=== PATIENT | female | born 1945 | race Caucasian/White ===

== ENCOUNTER 2020-01-01 09:47 | Emergency (ER) | payer MEDICARE ==
[~2020-01-01] VITALS: Ht 160 cm; Wt 86.4 kg
[2020-01-01 09:57] VITALS: BP 180/95; Ht 160 cm; Wt 86.4 kg
[2020-01-01] MEDS ORDERED: DYRENIUM50 MG PO (09:59)
[2020-01-01] MEDS ORDERED: NORVASC5 MG PO (09:59)
== END 2020-01-01 11:04 | disposition home or self-care (01) ==
LOC: D.ER 09:47
DX: M25.561 Pain in right knee (principal); I10 Essential (primary) hypertension

== ENCOUNTER → 2020-01-28 18:52 | Outpatient (CLI) | payer MEDICARE ==
[2020-01-01 09:57] VITALS: BMI 33.7
[~2020-01-28 18:52] MED LIST: DYRENIUM50 MG PO; NORVASC5 MG PO
== END | disposition home or self-care (01) ==
LOC: D.LAB 18:52
PROVIDERS: ATTEND Orthopaedic Surgery
DX: M17.11 Unilateral primary osteoarthritis, right knee (principal)

== ENCOUNTER → 2020-07-02 16:10 | Outpatient (CLI) | payer MEDICARE ==
[2020-01-01 09:57] VITALS: BMI 33.7
== END | disposition home or self-care (01) ==
LOC: D.LABREF 16:10
PROVIDERS: ATTEND Orthopaedic Surgery
DX: M17.11 Unilateral primary osteoarthritis, right knee (principal)

== ENCOUNTER 2020-08-24 06:58 | Inpatient (IN) | payer MEDICARE ==
--- NOTE | 2020-08-17 14:09 | NUR ---
PATIENT REFUSES BLOOD TRRANSFUSION COOPER AT DR. YOUNG'S OFFICE NOTIFIED
[2020-08-18 13:10] LABS: BASOPHILS 0.4 % (0-2); EOSINOPHILS 1.3 % (0-7); HEMATOCRIT 41.6 % (36.0-48.0); HEMOGLOBIN 13.3 g/dL (12-16); IMMATURE GRANULOCYTES 0.2 % (0-5); LYMPHOCYTES 47.8 % (15-50); MCH 26.7 pg (26.0-34.0); MCV 83.4 fL (80.0-100.0); MEAN PLATELET VOLUME 10.9 fL (7.4-10.4); MONOCYTES 9.9 % (2-11); NEUTROPHIL ABS# 2.11 10x3/uL (1.56-6.13); NEUTROPHILS 40.4 % (40-80); PLATELET COUNT 232 10x3/uL (130-400); RBC 4.99 10x6/uL (4.00-5.40); WBC 5.2 10x3/uL (4.8-10.8)
[2020-08-18 13:18] LABS: BILIRUBIN NEGATIVE (NEGATIVE); KETONE NEGATIVE (NEGATIVE); NITRITE NEGATIVE (NEGATIVE); UROBILINOGEN NORMAL mg/dL (< 2)
[2020-08-18 13:20] LABS: ANION GAP 11.1 mmol/L (8-16); CALCIUM 9.3 mg/dL (8.5-10.1); CARBON DIOXIDE 30.5 mmol/L (21.0-32.0); POTASSIUM - SERUM 3.6 mmol/L (3.5-5.1)
[2020-08-18 13:21] LABS: APTT 32.6 SECONDS (22.8-39.4); INR 1.11 (0.85-1.17); PROTIME 13.3 SECONDS (11.6-15.0)
[2020-08-24] VITALS (10 sets, daily range): BP systolic 115–157; BP diastolic 61–77; Ht 154.9 cm; Wt 89.1 kg
[~2020-08-24] VITALS: Ht 154.9 cm; Wt 89.1 kg
[~2020-08-24 06:58] MED LIST changes: +DIOVAN160 MG
--- NOTE | 2020-08-24 13:09 | NUR ---
RECIEVED PER BED FROM PACU. AWAKE AND ALERT WITH NO COMPLAINTS OF PAIN. RIGHT KNEE WRAPPED IN CHANDU WRAP CLEAN DRY AND INTACT. SCD AND MAIKEL HOSE ON BILAT. ICE PACK TO RIGHT KNEE. FALL PRECAUTIONS IN PLACE WITH BED ALARM ACTIVATED. IV TO LEFT FOREARM WITHOUT SWELLING. FAMILY AT BEDSIDE. CALL LIGHT IN REACH
--- NOTE | 2020-08-24 17:29 | NUR ---
pt vomited approx 100cc green liq after zofran given and eating some dinner. encouraged pt not to continue to eat and let stomash settle. placed on cpm machine with ice bag to knee. call light in place and fall alarm on and active
--- NOTE | 2020-08-24 18:19 | MORECARE ---
CASE MANAGEMENT DISCHARGE SUMMARY PATIENT: SHIV MCFADDEN UNIT: [id number] ADM DATE: 08/24/20 AGE: 75 : 46 SEX: F ROOM/BED: D.1208 AUTHOR: DAYTON,DOC PHYSICIAN: REFERRING PHYSICIAN: UZMA YOUNG DO DATE OF SERVICE: 08/24/20 Case Management Discharge Planning Summary COMMENTS ENTERED DATE: 08/24/20 18:13 CT COMMENT TYPE: Discharge Planning REVIEWER: Kalyan Telles CM met with patient to complete DC plan and to evaluate needs. Patient lives independently with her daughter, Noreen Diaz, . Patient stated that her home is safe and has electricity and running water. Patient stated that she has no problems paying for medications and she fills her medications at [facility]. Patient stated that her primary care physician is Dr. Wright. At discharge, the patient plans to return home and feels this is a safe discharge. CM discussed availability of home health, rehab services, and medical equipment. Patient declined HHS, SNF, IPR, and DME. Patient would like Outpatient Physical Therapy with [facility]. KI signed and placed in chart. Patient stated that she has a Shower Chair and Walker. Patient stated that the CPM arrived at her house before her surgery. Patient voiced no other needs at this time and is satisfied with DC plan. Transportation provider at discharge will be with her daughter, Noreen. SUZETTE delivered, explained, signed by the patient, and placed in chart. Signed form also left with the patient. CM will continue to follow and will assist as needed with dc plans/needs DCP REVIEW SUMMARY ANTICIPATED D/C DATE: EXPECTED LOS : CASE STATUS: DCP Initiated INITIAL REVIEW: 08/24/2020 INITIAL REVIEWER: Kalyan Telles FINAL DISCHARGE DISPOSITION: : FINAL REVIEWER: FINAL REVIEW DATE: DCP Focus Questions & Answers DCP Evaluation QUESTION: ANSWER Patient and/or caregiver agree upon recommended discharge plan? : Yes Family / Caregiver's ability to cope with chronic illness: : a. Adequate (ability to meet patient's medical needs, ensures patient attends medical appts.) Patient's current cognitive status: : *Oriented to person, place, situation, time and present Patient's ability to cope with chronic illness : d. No chronic illness Patient gives permission to discuss discharge plans with: (name, relationship and number) : daughter Noreen Diaz, Does the patient have the ability to pay for or attain post discharge needs / services? : Yes Functional screen assessment: : Basic needs can adequately be met by self Family / Caregiver's ability to cope with chronic illness: : a. Adequate (ability to meet patient's medical needs, ensures patient attends medical appts.) Physical Status: : Independent with ADL's Equipment needed for post hospitalization: : None Is there a likelihood that the patient will require additional services to return to the preadmission environment? : No Living Arrangements: : Home with Extended Family Patient with capacity for self-care or can be cared for in same environment as prior to hospitalization? : Yes Baseline cognitive status: : *Oriented to person, place, situation, time and present Physical environment modification needed / anticipated for discharge: : No Medication Management: : Patient states can read and understand medication labels Medication Management: : Patient states can afford medications Pharmacy name(s): : [facility] Does Patient have transportation to get home and to follow-up medical appointments when discharged from the hospital? : Yes Would patient like to participate in any Care Coordination programs (if applicable): : Not applicable Does the patient have electricity at home? : Yes Does the patient have running water in their house? : Yes Equipment in use: : Walker - Rolling Equipment in use: : Shower Chair Mental health screen: : No mental health history DCP Re-evaluation QUESTION: ANSWER Would patient like to participate in any Care Coordination programs (if applicable): : Not applicable PATIENT: SHIV MCFADDEN ENCOUNTER: [id number] MEDICAL RECORD#: [id number] ADMISSION DATE: 08/24/2020 DISCHARGE DATE: ATTENDING MD: UZMA BLAKE : AGE: 75 MARITAL STATUS: W DC PLAN ID: [id number] FACILITY: [facility] PRINTED ON: 08/24/20 18:19 CT All edits/amendments must be made on the electronic document DICTATION DATE: 08/24/201818 ACID TESTER: AMANDA 08/24/201818 RPT#: [id number] DC DATE: STATUS: ADM IN [facility] [address] [place] [address] END OF REPORT
--- NOTE | 2020-08-24 18:29 | MORECARE ---
CASE MANAGEMENT DISCHARGE SUMMARY PATIENT: SHIV MCFADDEN UNIT: [id number] ADM DATE: 08/24/20 AGE: 75 : 46 SEX: F ROOM/BED: D.1208 AUTHOR: DAYTON,DOC PHYSICIAN: REFERRING PHYSICIAN: UZMA YOUNG DO DATE OF SERVICE: 08/24/20 Case Management Discharge Planning Summary COMMENTS ENTERED DATE: 08/24/20 18:13 CT COMMENT TYPE: Discharge Planning REVIEWER: Kalyan Telles CM met with patient to complete DC plan and to evaluate needs. Patient lives independently with her daughter, Noreen Diaz, . Patient stated that her home is safe and has electricity and running water. Patient stated that she has no problems paying for medications and she fills her medications at [facility]. Patient stated that her primary care physician is Dr. Wright. At discharge, the patient plans to return home and feels this is a safe discharge. CM discussed availability of home health, rehab services, and medical equipment. Patient declined HHS, SNF, IPR, and DME. Patient would like Outpatient Physical Therapy with [facility]. KI signed and placed in chart. Patient stated that she has a Shower Chair and Walker. Patient stated that the CPM arrived at her house before her surgery. Patient voiced no other needs at this time and is satisfied with DC plan. Transportation provider at discharge will be with her daughter, Rachel. BRADFORD delivered, explained, signed by the patient, and placed in chart. Signed form also left with the patient. CM will continue to follow and will assist as needed with dc plans/needs Appended by Kalyan Telles on 08/24/2020 18:22 CDT: 24 Aug 2020 Clinical Documents faxed to [facility] OP PT. CM will continue to follow and will assist as needed with dc plans/needs DCP REVIEW SUMMARY ANTICIPATED D/C DATE: EXPECTED LOS : CASE STATUS: DCP Initiated INITIAL REVIEW: 08/24/2020 INITIAL REVIEWER: Kalyan Telles FINAL DISCHARGE DISPOSITION: : FINAL REVIEWER: FINAL REVIEW DATE: DCP Focus Questions & Answers DCP Evaluation QUESTION: ANSWER Patient and/or caregiver agree upon recommended discharge plan? : Yes Family / Caregiver's ability to cope with chronic illness: : a. Adequate (ability to meet patient's medical needs, ensures patient attends medical appts.) Patient's current cognitive status: : *Oriented to person, place, situation, time and present Patient's ability to cope with chronic illness : d. No chronic illness Patient gives permission to discuss discharge plans with: (name, relationship and number) : daughterNoreen, Does the patient have the ability to pay for or attain post discharge needs / services? : Yes Functional screen assessment: : Basic needs can adequately be met by self Family / Caregiver's ability to cope with chronic illness: : a. Adequate (ability to meet patient's medical needs, ensures patient attends medical appts.) Physical Status: : Independent with ADL's Equipment needed for post hospitalization: : None Is there a likelihood that the patient will require additional services to return to the preadmission environment? : No Living Arrangements: : Home with Extended Family Patient with capacity for self-care or can be cared for in same environment as prior to hospitalization? : Yes Baseline cognitive status: : *Oriented to person, place, situation, time and present Physical environment modification needed / anticipated for discharge: : No Medication Management: : Patient states can read and understand medication labels Medication Management: : Patient states can afford medications Pharmacy name(s): : [facility] Does Patient have transportation to get home and to follow-up medical appointments when discharged from the hospital? : Yes Would patient like to participate in any Care Coordination programs (if applicable): : Not applicable Does the patient have electricity at home? : Yes Does the patient have running water in their house? : Yes Equipment in use: : Walker - Rolling Equipment in use: : Shower Chair Mental health screen: : No mental health history DCP Re-evaluation QUESTION: ANSWER Would patient like to participate in any Care Coordination programs (if applicable): : Not applicable PATIENT: SHIV MCFADDEN ENCOUNTER: [id number] MEDICAL RECORD#: [id number] ADMISSION DATE: 08/24/2020 DISCHARGE DATE: ATTENDING MD: UZMA BLAKE : AGE: 75 MARITAL STATUS: W DC PLAN ID: [id number] FACILITY: [facility] PRINTED ON: 08/24/20 18:29 CT All edits/amendments must be made on the electronic document DICTATION DATE: 08/24/201828 CUTCH CLEANER: AMANDA 08/24/201828 RPT#: [id number] DC DATE: STATUS: ADM IN [facility] [address] [place] [place] [address] END OF REPORT
--- NOTE | 2020-08-24 20:00 | NUR ---
ALERT RESTING IN BED, CPM IN USE DENIES PAIN OR NEEDS AT THIS TIME, SEE SHIFT ASSESSMENT CALL LIGHT IN REACH
--- NOTE | 2020-08-24 21:06 | OP ---
PATIENT NAME: SHIV FLORES MEDICAL RECORD: [id number] :47 LOCATION:D. D.1208 ADMISSION DATE:08/24/20 SURGEON: EH YOUNG DO DATE OF OPERATION: 08/24/2020 PROCEDURE PERFORMED: Right total knee arthroplasty. PREOPERATIVE DIAGNOSIS: Right knee osteoarthritis. POSTOPERATIVE DIAGNOSIS: Right knee osteoarthritis. INDICATIONS: Ms. Flores is a 75-year-old female who has had right knee pain for quite some time. She was tired of dealing with the pain and wanted something done surgically. She has tried all manner of nonoperative treatment and it has affected her activities of daily living. I informed her of the risks of this including infection, bleeding, damage to nerves or vessels, need for further surgery, continued pain, failure of the implant, fracture, need for revision, blood clots and even and she signed a consent. SURGEON: Eh Young DO DESCRIPTION OF PROCEDURE: The patient was taken to the operative suite, laid in supine position, given a block and a spinal and then light sedation. She was given 2 grams of Ancef, 80 mg of gentamicin and a gram of TXA. She was then prepped and draped in sterile fashion. Timeout was performed. Everyone was in agreeance with the correct side, site, patient and procedure. I then began by marking out the incision from the anterior knee covered in Ioban. I then made careful dissection down with a 10-blade scalpel to the capsule, did a medial parapatellar approach to go into the capsule, coagulating any bleeding with Aquamantys. I then everted the patella, removed part of the fat pad and removed the osteophytes off the patella. I then milled the patella down and measured it with calipers to be 13 mm, then drilled for a 29 patella. I then exposed the femur, removed the ACL, went to the femoral canal. Once the femoral canal was entered, I brought in the intramedullary guide and cut the distal femur at 5 degrees of valgus. I then exposed the tibia, cut the proximal tibia off the medial side and 10 mm extramedullary tibial guide. I then removed that bone and brought in the extension, removed the menisci and a 10 extension block, fit very well. I then flexed the knee up and the femur was measured to be a 7. I then put the 4-in-1 cutting block on it and used an hanny wing to assure there was no notching. I then cut the femur through the 4-in-1 cutting block, removed the bone, exposed the tibia, sized it to be D, pinned that into place, put the femoral trial on and a 10 poly in between, it fit very well, had good varus and valgus stability in flexion, mid flexion and extension. I then drilled the lug holes on the femur, removed the femoral trial as well as the poly and then reamed and punched the tibia. I put extra holes in the tibia for cement mantle. I then irrigated that out and put cement in the tibia and on the implant, impacted into place, removed excess cement and impacted the femur on and put the poly trial in between, brought the knee in extension, irrigated and cleaned out the patellar holes for cement and then on the implant, squeezed it into place, removed excess cement. I then put in 10% povidine iodine and 500 mL normal saline solution and let sit for a few minutes and then irrigated out with over a liter of normal saline. While we were waiting for that, I injected the joint cocktail around the periosteum of the femur and the tibia and then in the quads. After I irrigated out the Betadine and the cement had dried, I sized the tibia, tried a 11, 11 fit very well. I then removed the trial, irrigated and then put OPERATIVE REPORT [id number] SHIV FLORES in the 11 medial congruent bearing E poly tibial poly and then ranged the knee, it ranged very well and had good varus and valgus stability in flexion, extension and mid flexion. We then put in the Jairon and vancomycin and tobramycin powder and then closed the capsule with #1 Vicryl in [id number] fashion. Abiel Chaney, certified prosthetist closed over that with Stratafix. I then closed the skin with 2-0 Vicryl in inverted interrupted fashion, placed ZipLine, adaptic, 4 x 4s, ABD, cast padding and 6-inch Moe wrap on the knee and then a MAIKEL hose stocking up the knee. She was awakened and taken to recovery in stable condition. Blood loss was approximately 200 mL. COMPLICATIONS: None. TRANSINT:[id number] Voice Confirmation ID: [id number] DOCUMENT ID: [id number] EH YOUNG DO at 2106 CC: [id number] DICTATION DATE: 08/24/20 1158 EQUIPMENT OPERATOR: 08/24/20 1636 ADM IN [facility] [address] [id number]
[2020-08-25 00:02] VITALS: BP 149/71
[2020-08-25 04:00] VITALS: BP 134/70
[2020-08-25 07:00] VITALS: BP 144/70
[2020-08-25 07:21] LABS: BASOPHILS 0 % (0-2); EOSINOPHILS 0.4 % (0-7); HEMATOCRIT 34.6 % (36.0-48.0); IMMATURE GRANULOCYTES 0.1 % (0-5); LYMPHOCYTE ABS# 1.47 10x3/uL (1.18-3.74); LYMPHOCYTES 21.2 % (15-50); MCH 26.4 pg (26.0-34.0); MCHC 31.8 g/dL (31.0-37.0); MEAN PLATELET VOLUME 10.9 fL (7.4-10.4); NEUTROPHIL ABS# 4.79 10x3/uL (1.56-6.13); NEUTROPHILS 69.3 % (40-80); PLATELET COUNT 205 10x3/uL (130-400); RBC 4.17 10x6/uL (4.00-5.40); RDW 13.7 % (11.5-14.5); WBC 6.9 10x3/uL (4.8-10.8)
[2020-08-25 07:41] LABS: ALBUMIN 2.9 g/dL (3.4-5.0); ANION GAP 10.5 mmol/L (8-16); BILIRUBIN - TOTAL 0.47 mg/dL (0.2-1.3); CALCIUM 7.9 mg/dL (8.5-10.1); CARBON DIOXIDE 28.2 mmol/L (21.0-32.0); POTASSIUM - SERUM 3.7 mmol/L (3.5-5.1); PROTEIN - SERUM 6.6 g/dL (6.4-8.2)
--- NOTE | 2020-08-25 07:49 | NUR ---
AWAKE AND ALERT. ORIENTED X3. NO C/O AT THIS TIME. LUNGS ARE CLEAR BILATERALLY, NO COUGH NOTED. REPORTED USED IS INSTRUCTED. SKIN IS INTACT WITHOUT REDNESS EXCEPT INCISION TO RIGHT KNEE WHICH HAS A DRY INTACT DRESSING IN PLACE. IV TO LEFT FOREARM IS PATENT WITHOUT REDNESS AT INSERTION SITE. UP TO BSC WITH MAX ASSIST OF 2. WILL MONITOR. CPM ON RIGHT KNEE.
--- NOTE | 2020-08-25 09:42 | NUR ---
CONTINUES UP IN CHAIR AT BEDSIDE. REQUESTED AND GIVEN ONE PERCOCET PO FOR C/O RIGHT KNEE PAIN LEVEL 8. WILL MONITOR.
--- NOTE | 2020-08-25 10:51 | NUR ---
SITTING UP IN CHAIR AT BEDSIDE. DAUGHTER AT BEDSIDE.
[2020-08-25 11:00] VITALS: BP 141/65
--- NOTE | 2020-08-25 16:10 | MORECARE ---
CASE MANAGEMENT DISCHARGE SUMMARY PATIENT: SHIV MCFADDEN UNIT: [id number] ADM DATE: 08/24/20 AGE: 75 : 47 SEX: F ROOM/BED: D.1208 AUTHOR: DAYTON,DOC PHYSICIAN: REFERRING PHYSICIAN: UZMA YOUNG DO DATE OF SERVICE: 08/25/20 Case Management Discharge Planning Summary COMMENTS ENTERED DATE: 08/24/20 18:13 CT COMMENT TYPE: Discharge Planning REVIEWER: Kalyan Telles CM met with patient to complete DC plan and to evaluate needs. Patient lives independently with her daughter, Noreen Diaz, . Patient stated that her home is safe and has electricity and running water. Patient stated that she has no problems paying for medications and she fills her medications at [facility]. Patient stated that her primary care physician is Dr. Wright. At discharge, the patient plans to return home and feels this is a safe discharge. CM discussed availability of home health, rehab services, and medical equipment. Patient declined HHS, SNF, IPR, and DME. Patient would like Outpatient Physical Therapy with [facility]. KI signed and placed in chart. Patient stated that she has a Shower Chair and Walker. Patient stated that the CPM arrived at her house before her surgery. Patient voiced no other needs at this time and is satisfied with DC plan. Transportation provider at discharge will be with her daughter, Rachel. BRADFORD delivered, explained, signed by the patient, and placed in chart. Signed form also left with the patient. CM will continue to follow and will assist as needed with dc plans/needs Appended by Kalyan Telles on 08/24/2020 18:22 CDT: 24 Aug 2020 Clinical Documents faxed to [facility] OP PT. CM will continue to follow and will assist as needed with dc plans/needs DCP REVIEW SUMMARY ANTICIPATED D/C DATE: EXPECTED LOS : CASE STATUS: DCP Initiated INITIAL REVIEW: 08/24/2020 INITIAL REVIEWER: Kalyan Telles FINAL DISCHARGE DISPOSITION: : FINAL REVIEWER: FINAL REVIEW DATE: DCP Focus Questions & Answers DCP Evaluation QUESTION: ANSWER Patient gives permission to discuss discharge plans with: (name, relationship and number) : daughterNoreen, Patient's ability to cope with chronic illness : d. No chronic illness Patient's current cognitive status: : *Oriented to person, place, situation, time and present Family / Caregiver's ability to cope with chronic illness: : a. Adequate (ability to meet patient's medical needs, ensures patient attends medical appts.) Patient and/or caregiver agree upon recommended discharge plan? : Yes Physical Status: : Independent with ADL's Family / Caregiver's ability to cope with chronic illness: : a. Adequate (ability to meet patient's medical needs, ensures patient attends medical appts.) Functional screen assessment: : Basic needs can adequately be met by self Does the patient have the ability to pay for or attain post discharge needs / services? : Yes Living Arrangements: : Home with Extended Family Is there a likelihood that the patient will require additional services to return to the preadmission environment? : No Equipment needed for post hospitalization: : None Baseline cognitive status: : *Oriented to person, place, situation, time and present Patient with capacity for self-care or can be cared for in same environment as prior to hospitalization? : Yes Physical environment modification needed / anticipated for discharge: : No Medication Management: : Patient states can afford medications Medication Management: : Patient states can read and understand medication labels Pharmacy name(s): : [facility] Does Patient have transportation to get home and to follow-up medical appointments when discharged from the hospital? : Yes Would patient like to participate in any Care Coordination programs (if applicable): : Not applicable Does the patient have electricity at home? : Yes Does the patient have running water in their house? : Yes Equipment in use: : Shower Chair Equipment in use: : Walker - Rolling Mental health screen: : No mental health history DCP Re-evaluation QUESTION: ANSWER Would patient like to participate in any Care Coordination programs (if applicable): : Not applicable PATIENT: SHIV MCFADDEN ENCOUNTER: [id number] MEDICAL RECORD#: [id number] ADMISSION DATE: 08/24/2020 DISCHARGE DATE: ATTENDING MD: UZMA BLAKE : AGE: 75 MARITAL STATUS: W DC PLAN ID: [id number] FACILITY: [facility] PRINTED ON: 08/25/20 16:09 CT All edits/amendments must be made on the electronic document DICTATION DATE: 08/25/201608 SYSTEMS ANALYSIS MANAGER: AMANDA 08/25/201608 RPT#: [id number] DC DATE: STATUS: ADM IN [facility] [address] [place] [address] END OF REPORT
--- NOTE | 2020-08-25 17:25 | MORECARE ---
CASE MANAGEMENT DISCHARGE SUMMARY PATIENT: SHIV MCFADDEN UNIT: [id number] ADM DATE: 08/24/20 AGE: 75 : 47 SEX: F ROOM/BED: D.1208 AUTHOR: DAYTON,DOC PHYSICIAN: REFERRING PHYSICIAN: UZMA YOUNG DO DATE OF SERVICE: 08/25/20 Case Management Discharge Planning Summary COMMENTS ENTERED DATE: 08/25/20 17:13 CT COMMENT TYPE: Discharge Planning REVIEWER: Roma Strange CM called [facility] Outpatient therapy and scheduled patient's therapy appointment for soonest available-Sunday 10:45. CM met with patient and instructed her on therapy appointment. Patient verbalized understanding and satisfaction with discharge plans. CM put patient's copy of therapy appointment on chart for nurse to give her at discharge with DC instructions. Denies any other discharge planning needs at this time. ENTERED DATE: 08/24/20 18:13 CT COMMENT TYPE: Discharge Planning REVIEWER: Kalyan Telles CM met with patient to complete DC plan and to evaluate needs. Patient lives independently with her daughter, Noreen Diaz, . Patient stated that her home is safe and has electricity and running water. Patient stated that she has no problems paying for medications and she fills her medications at [facility]. Patient stated that her primary care physician is Dr. Wright. At discharge, the patient plans to return home and feels this is a safe discharge. CM discussed availability of home health, rehab services, and medical equipment. Patient declined HHS, SNF, IPR, and DME. Patient would like Outpatient Physical Therapy with [facility]. KI signed and placed in chart. Patient stated that she has a Shower Chair and Walker. Patient stated that the CPM arrived at her house before her surgery. Patient voiced no other needs at this time and is satisfied with DC plan. Transportation provider at discharge will be with her daughter, Noreen. BRADFORD delivered, explained, signed by the patient, and placed in chart. Signed form also left with the patient. CM will continue to follow and will assist as needed with dc plans/needs Appended by Kalyan Telles on 08/24/2020 18:22 CDT: 24 Aug 2020 Clinical Documents faxed to [facility] OP PT. CM will continue to follow and will assist as needed with dc plans/needs DCP REVIEW SUMMARY ANTICIPATED D/C DATE: EXPECTED LOS : CASE STATUS: DCP Initiated INITIAL REVIEW: 08/24/2020 INITIAL REVIEWER: Kalyan Telles FINAL DISCHARGE DISPOSITION: : FINAL REVIEWER: FINAL REVIEW DATE: DCP Focus Questions & Answers DCP Evaluation QUESTION: ANSWER Patient gives permission to discuss discharge plans with: (name, relationship and number) : daughterNoreen, Patient's ability to cope with chronic illness : d. No chronic illness Patient's current cognitive status: : *Oriented to person, place, situation, time and present Family / Caregiver's ability to cope with chronic illness: : a. Adequate (ability to meet patient's medical needs, ensures patient attends medical appts.) Patient and/or caregiver agree upon recommended discharge plan? : Yes Physical Status: : Independent with ADL's Family / Caregiver's ability to cope with chronic illness: : a. Adequate (ability to meet patient's medical needs, ensures patient attends medical appts.) Functional screen assessment: : Basic needs can adequately be met by self Does the patient have the ability to pay for or attain post discharge needs / services? : Yes Living Arrangements: : Home with Extended Family Is there a likelihood that the patient will require additional services to return to the preadmission environment? : No Equipment needed for post hospitalization: : None Baseline cognitive status: : *Oriented to person, place, situation, time and present Patient with capacity for self-care or can be cared for in same environment as prior to hospitalization? : Yes Physical environment modification needed / anticipated for discharge: : No Medication Management: : Patient states can afford medications Medication Management: : Patient states can read and understand medication labels Pharmacy name(s): : [facility] Does Patient have transportation to get home and to follow-up medical appointments when discharged from the hospital? : Yes Would patient like to participate in any Care Coordination programs (if applicable): : Not applicable Does the patient have electricity at home? : Yes Does the patient have running water in their house? : Yes Equipment in use: : Shower Chair Equipment in use: : Walker - Rolling Mental health screen: : No mental health history DCP Re-evaluation QUESTION: ANSWER Would patient like to participate in any Care Coordination programs (if applicable): : Not applicable PATIENT: SHIV MCFADDEN ENCOUNTER: [id number] MEDICAL RECORD#: [id number] ADMISSION DATE: 08/24/2020 DISCHARGE DATE: ATTENDING MD: UZMA BLAKE : AGE: 75 MARITAL STATUS: W DC PLAN ID: [id number] FACILITY: [facility] PRINTED ON: 08/25/20 17:25 CT All edits/amendments must be made on the electronic document DICTATION DATE: 08/25/201724 AUTOMOBILE LIGHTS ASSEMBLER: AMANDA 08/25/201724 RPT#: [id number] DC DATE: STATUS: ADM IN [facility] [address] [place] [address] END OF REPORT
--- NOTE | 2020-08-25 18:01 | NUR ---
FOUND TO HAVE GOTTEN OOB PER SELF. VOIDED WITHOUT DIFFICULTY. DISCUSSED REASONS NOT TO BE UP ALONE FOR SAFETY. PATIENT VERBALIZED UNDERSTANDING OF SAME. WILL MONITOR. ATE ALL OF SUPPER. DENIES NEEDS NO CHANGES NOTED. CPM ON AT THIS TIME.
[2020-08-25 20:00] VITALS: BP 170/56
--- NOTE | 2020-08-25 20:00 | NUR ---
ALERT RESTING IN BED CPM IN USE, REPORTS PAIN TO KNEE, INSTRUCTED WILL MEDICATE SOON TIME, SEE SHIFT ASSESSMENT, CALL LIGHT IN REACH,
[2020-08-26 04:30] VITALS: BP 138/60
[2020-08-26 06:13] LABS: BASOPHILS 0.1 % (0-2); HEMATOCRIT 33.3 % (36.0-48.0); HEMOGLOBIN 10.7 g/dL (12-16); IMMATURE GRANULOCYTES 0.4 % (0-5); LYMPHOCYTE ABS# 2.02 10x3/uL (1.18-3.74); LYMPHOCYTES 25.5 % (15-50); MCH 26.6 pg (26.0-34.0); MCHC 32.1 g/dL (31.0-37.0); MCV 82.6 fL (80.0-100.0); MEAN PLATELET VOLUME 10.4 fL (7.4-10.4); MONOCYTES 11.4 % (2-11); NEUTROPHIL ABS# 4.88 10x3/uL (1.56-6.13); NEUTROPHILS 61.6 % (40-80); PLATELET COUNT 182 10x3/uL (130-400); RBC 4.03 10x6/uL (4.00-5.40); RDW 13.7 % (11.5-14.5); WBC 7.9 10x3/uL (4.8-10.8)
[2020-08-26 06:38] LABS: ALBUMIN 2.8 g/dL (3.4-5.0); ANION GAP 10.4 mmol/L (8-16); BILIRUBIN - TOTAL 0.52 mg/dL (0.2-1.3); CALCIUM 8.3 mg/dL (8.5-10.1); CARBON DIOXIDE 27.8 mmol/L (21.0-32.0); CREATININE - SERUM 0.8 mg/dL (0.6-1.3); POTASSIUM - SERUM 3.2 mmol/L (3.5-5.1); PROTEIN - SERUM 6.5 g/dL (6.4-8.2)
--- NOTE | 2020-08-26 07:16 | NUR ---
PT IS RESTING IN BED WITH EYES OPEN. RESPIRATIONS ARE EVEN AND UNLABORED. PT IS AAO X 4 AND ANSWERS ALL QUESTIONS APPROPRIATLEY. CPM NOTED TO RLE. DRESSING TO RIGHT KNEE IS CDI. PT DENIES PRESENCE OF NUMBNESS/TINGLING TO BLE. CAP REFILL IS < 3. PT DENIES BM SINCE PROCEDURE BUT REPORTS PASSING "A LOT" OF GAS. PT DENIES PRESENCE OF PAIN/N/V AT THIS TIME. INCENTIVE SPIROMETER WITHIN REACH AND ENCOURAGED. GOOD EFFORT WITH APPROPRIATE RETURN DEMONSTRATION OF IS REACHING 2000. ALL FALL PRECAUTIONS ARE IN PLACE. BED IS IN THE LOWEST POSITION. CALL LIGHT AND BEDSIDE TABLE ARE WITHIN REACH. SIDE RAILS X 2. BED ALARM IS ON AND WORKING. PT DENIES FURTHER NEEDS. WILL CONT TO MONITOR.
[2020-08-26 07:27] VITALS: BP 147/60
[2020-08-26] MEDS ORDERED: ZOFRAN ODT4 MG/UDTAB PO (07:39)
[2020-08-26] MEDS ORDERED: HYDROCODON-ACE1 EA10 PO (07:39)
[2020-08-26] MEDS ORDERED: ELIQUIS2.5 MG PO (07:39)
--- NOTE | 2020-08-26 08:14 | NUR ---
CPM MACHINE REMOVED. SCDS ON BLE. FALL PRECAUTIONS IN PLACE. BREAKFAST TRAY WITHIN REACH. INCENTIVE SPIROMETER WITHIN REACH. BED IS IN TH LOWEST POSITION. CALL LIGHT AND BEDSIDE TABLE ARE WITHIN REACH. SIDE RAILS X 2. PT DENIES FURTHER NEEDS. WILL CONT TO MONITOR.
--- NOTE | 2020-08-26 10:07 | NUR ---
ALL DISCHARGE INSTRUCTIONS COVERED WITH PT AND PT FAMILY MEMBER. (3) PRINTED RX GIVEN TO PT. VERBAL AND WRITTEN DISCHARGE INSTRUCTIONS COVERED. DRESSING TO RIGHT KNEE CHANGED PER ORDER. EXTRA DRESSING X 3 GIVEN TO PT FOR PRN DRESSING CHANGES. NO PIV ACCESS TO BE REMOVED. ALL DISCHARGE INSTRUCTIONS SIGNED BY PT. PT REQUESTS PAIN MEDICATION PRIOR TO DC. WILL ADDRESS. SEE EMAR. PT AND PT FAMILY MEMBER DENY FURTHER QUESTIONS/CONCERNS/NEEDS AT THIS TIME. PT TO NOTUFY WHEN READY FOR TRANSPORT FROM ROOM. BED IS IN THE LOWEST POSITION. CALL LIGHT AND BEDSIDE TABLE ARE WITHIN REACH. SIDE RAILS X 2. PT AND PT FAMILY DENY FURTHER NEEDS.
--- NOTE | 2020-08-26 10:13 | NUR ---
PT NOTIFIES NURSE OF READY FOR TRANPORT FOR DC. TELEPHONE STERILIZER CALLED FOR TRANSPORT FROM ROOM.
--- NOTE | 2020-08-26 10:22 | NUR ---
PT TRANSPORTED FROM ROOM VIA WHEELCHAIR ESCORTED BY HOSPITAL WASH BARREL LEADER. PT DENIES FURTHER NEEDS/QUESTIONS/CONCERNS AND STATE THAT SHE DOES HAVE ALL PERSONAL BELONGINGS. PT THANKS THIS NURSE FOR CARE GIVEN DURING THIS SHIFT AND EXPRESSES CONTENT WITH ENTIRE HOSPITAL STAY.
--- NOTE | 2020-08-26 10:34 | MORECARE ---
CASE MANAGEMENT DISCHARGE SUMMARY PATIENT: SHIV MCFADDEN UNIT: [id number] ADM DATE: 08/25/20 AGE: 75 : 47 SEX: F ROOM/BED: D.1208 AUTHOR: DAYTON,DOC PHYSICIAN: REFERRING PHYSICIAN: UZMA YOUNG DO DATE OF SERVICE: 08/26/20 Case Management Discharge Planning Summary COMMENTS ENTERED DATE: 08/25/20 17:13 CT COMMENT TYPE: Discharge Planning REVIEWER: Roma Strange CM called [facility] Outpatient therapy and scheduled patient's therapy appointment for soonest available-Sunday 10:45. CM met with patient and instructed her on therapy appointment. Patient verbalized understanding and satisfaction with discharge plans. CM put patient's copy of therapy appointment on chart for nurse to give her at discharge with DC instructions. Denies any other discharge planning needs at this time. ENTERED DATE: 08/24/20 18:13 CT COMMENT TYPE: Discharge Planning REVIEWER: Kalyan Telles CM met with patient to complete DC plan and to evaluate needs. Patient lives independently with her daughter, Noreen Diaz, . Patient stated that her home is safe and has electricity and running water. Patient stated that she has no problems paying for medications and she fills her medications at [facility]. Patient stated that her primary care physician is Dr. Wright. At discharge, the patient plans to return home and feels this is a safe discharge. CM discussed availability of home health, rehab services, and medical equipment. Patient declined HHS, SNF, IPR, and DME. Patient would like Outpatient Physical Therapy with [facility]. KI signed and placed in chart. Patient stated that she has a Shower Chair and Walker. Patient stated that the CPM arrived at her house before her surgery. Patient voiced no other needs at this time and is satisfied with DC plan. Transportation provider at discharge will be with her daughter, Noreen. BRADFORD delivered, explained, signed by the patient, and placed in chart. Signed form also left with the patient. CM will continue to follow and will assist as needed with dc plans/needs Appended by Kalyan Telles on 08/24/2020 18:22 CDT: 24 Aug 2020 Clinical Documents faxed to [facility] OP PT. CM will continue to follow and will assist as needed with dc plans/needs DCP REVIEW SUMMARY ANTICIPATED D/C DATE: EXPECTED LOS : CASE STATUS: DCP Initiated INITIAL REVIEW: 08/24/2020 INITIAL REVIEWER: Kalyan Telles FINAL DISCHARGE DISPOSITION: : FINAL REVIEWER: FINAL REVIEW DATE: DCP Focus Questions & Answers DCP Evaluation QUESTION: ANSWER Patient and/or caregiver agree upon recommended discharge plan? : Yes Family / Caregiver's ability to cope with chronic illness: : a. Adequate (ability to meet patient's medical needs, ensures patient attends medical appts.) Patient's current cognitive status: : *Oriented to person, place, situation, time and present Patient's ability to cope with chronic illness : d. No chronic illness Patient gives permission to discuss discharge plans with: (name, relationship and number) : daughterNoreen, Does the patient have the ability to pay for or attain post discharge needs / services? : Yes Functional screen assessment: : Basic needs can adequately be met by self Family / Caregiver's ability to cope with chronic illness: : a. Adequate (ability to meet patient's medical needs, ensures patient attends medical appts.) Physical Status: : Independent with ADL's Equipment needed for post hospitalization: : None Is there a likelihood that the patient will require additional services to return to the preadmission environment? : No Living Arrangements: : Home with Extended Family Patient with capacity for self-care or can be cared for in same environment as prior to hospitalization? : Yes Baseline cognitive status: : *Oriented to person, place, situation, time and present Physical environment modification needed / anticipated for discharge: : No Medication Management: : Patient states can read and understand medication labels Medication Management: : Patient states can afford medications Pharmacy name(s): : [facility] Does Patient have transportation to get home and to follow-up medical appointments when discharged from the hospital? : Yes Would patient like to participate in any Care Coordination programs (if applicable): : Not applicable Does the patient have electricity at home? : Yes Does the patient have running water in their house? : Yes Equipment in use: : Walker - Rolling Equipment in use: : Shower Chair Mental health screen: : No mental health history DCP Re-evaluation QUESTION: ANSWER Would patient like to participate in any Care Coordination programs (if applicable): : Not applicable PATIENT: SHIV MCFADDEN ENCOUNTER: [id number] MEDICAL RECORD#: [id number] ADMISSION DATE: 08/25/2020 DISCHARGE DATE: 08/26/2020 ATTENDING MD: UZMA BLAKE : AGE: 75 MARITAL STATUS: W DC PLAN ID: [id number] FACILITY: [facility] PRINTED ON: 08/26/20 10:34 CT All edits/amendments must be made on the electronic document DICTATION DATE: 08/26/20 1033 SENIOR COMPLIANCE ANALYST: AMANDA 08/26/20 1033 RPT#: [id number] DC DATE:08/26/20 STATUS: DIS IN [facility] [address] [place] [address] END OF REPORT
== END 2020-08-26 10:23 | disposition home or self-care (01) | DRG 470 ==
LOC: D.OPS 06:58 → D.SDCHOLD 07:00 → EDSTATUS 07:00 → D.OPS 07:00 → D.M3 08:47 → OBSVTIME 08:47 → D.M3 08:47 → D.OPS 09:00 → D.M3 08-25 17:30
PROVIDERS: Family Medicine; ADMIT Orthopaedic Surgery; ATTEND Orthopaedic Surgery
PROC: 0SRC0J9 Replacement of Right Knee Joint with Synthetic Substitute, Cemented, Open Approach (ICD-10-PCS; principal; 2020-08-24 09:00)
DX: M17.11 Unilateral primary osteoarthritis, right knee (principal); I10 Essential (primary) hypertension; G89.29 Other chronic pain; M54.9 Dorsalgia, unspecified; D64.9 Anemia, unspecified; Z78.0 Asymptomatic menopausal state